=== PATIENT | male | born 1940 | race Caucasian/White ===

== ENCOUNTER 2021-08-05 05:53 | Inpatient (IN) ==
[2021-08-05] MEDS ORDERED: ONDANSETRON 4 MG/2 ML VIAL IV STA (07:44)
[2021-08-05] MEDS ORDERED: HYDROmorphone 2 MG/1 ML VIAL IV STA (07:44)
[2021-08-05 08:21] LABS: Basophils # 0.1 10*3/uL (0.0-0.2); Basophils % 0.4 % (0.0-0.8); Eosinophils # 0.1 10*3/uL (0.0-0.87); Eosinophils % 0.8 % (0.00-10.9); Hemoglobin 13.9 GM/DL (14.0-18.0); Immature Granulocytes % 0.8 %; Lymphocytes # 1.4 10*3/uL (1.4-4.0); Lymphocytes % 11.1 % (21.2-54.2); Mean Corpuscular HGB Conc 32.3 GM/DL (32-36); Mean Corpuscular Volume 82.4 FL (87-102); Mean Platelet Volume 8.4 FL (9.6-12.0); Monocytes % 7.9 % (1.7-12.7); Platelet Count 156 T/CUMM (130-400); Red Blood Count 5.22 MC/CUMM (3.8-5.5); Red Cell Distribution Width 14.6 % (9.3-17.3); White Blood Count 12.7 T/CUMM (4-12)
[2021-08-05 08:45] LABS: Alanine Aminotransferase < 6 U/L (16-61); Albumin 3.3 G/DL (3.4-5.0); Alkaline Phosphatase 270 U/L (45-117); Aspartate Amino Transferase 46 U/L (0-37); Blood Urea Nitrogen 22 MG/DL (7-18); Calcium 9.8 MG/DL (8.5-10.1); Carbon Dioxide 24 MMOL/L (21-32); Estimated Glom Filtration Rate 61 ML/MIN; Glucose 86 MG/DL (74-106); Osmolality,Calculated 276.7 MOS/KG (273-304); Potassium 4.1 MMOL/L (3.5-5.1); Sodium 138 MMOL/L (136-145); Total Protein 7.4 G/DL (6.4-8.2)
[2021-08-05] MEDS ORDERED: GLUCAGON 1 MG VIAL IM PRN (09:23)
[2021-08-05] MEDS ORDERED: DEXTROSE 50% 25 GM/50 ML VIAL IV PRN (09:23)
[2021-08-05] MEDS ORDERED: ONDANSETRON 4 MG/2 ML VIAL IV PRN (09:24)
[2021-08-05] MEDS: SODIUM CHLORIDE 0.9% 1,000 ML IV SCH (12:15)
[2021-08-05] MEDS: ENOXAPARIN 40 MG/0.4 ML SYRINGE SUBCUT SCH (12:20)
[2021-08-05] MEDS: ACETAMINOPHEN 325 MG TABLET PO PRN (18:40)
[2021-08-05] MEDS: METOPROLOL TARTRATE 25 MG TABLET PO SCH (20:47)
[2021-08-05] MEDS: DOCUSATE SODIUM 100 MG CAPSULE PO SCH (20:47)
[2021-08-06] MEDS: SODIUM CHLORIDE 0.9% 1,000 ML IV SCH ×2 (01:10→13:40)
[2021-08-06] MEDS: HYDROmorphone 2 MG/1 ML VIAL IV PRN ×2 (01:10→15:24)
[2021-08-06 05:54] LABS: Basophils # 0.1 10*3/uL (0.0-0.2); Basophils % 0.4 % (0.0-0.8); Eosinophils # 0.9 10*3/uL (0.0-0.87); Eosinophils % 8.1 % (0.00-10.9); Hematocrit 36.9 VOL% (42.0-52.0); Hemoglobin 11.6 GM/DL (14.0-18.0); Immature Granulocytes % 0.5 %; Immature Granulocytes Absolute 0.06 #; Lymphocytes # 1.5 10*3/uL (1.4-4.0); Lymphocytes % 12.5 % (21.2-54.2); Mean Corpuscular HGB Conc 31.4 GM/DL (32-36); Mean Corpuscular Volume 83.7 FL (87-102); Mean Platelet Volume 9.4 FL (9.6-12.0); Monocytes % 8.5 % (1.7-12.7); Platelet Count 122 T/CUMM (130-400); Red Blood Count 4.41 MC/CUMM (3.8-5.5); Red Cell Distribution Width 14.8 % (9.3-17.3); White Blood Count 11.6 T/CUMM (4-12)
[2021-08-06 06:05] LABS: Calcium 8.2 MG/DL (8.5-10.1); Potassium 4.1 MMOL/L (3.5-5.1)
[2021-08-06 07:14] LABS: Bilirubin,Urine Negative (Negative); Blood, Urine Small mg/dL (Negative); Glucose,Urine (UA) Negative (Negative); Hyaline Casts,Urine 6 /LPF (0-3); Ketones,Urine Negative (Negative); Mucus,Urine Few /LPF (Occasional); Nitrite,Urine Negative (Negative); Protein,Urine Negative; RBC,Urine 3 /HPF (0-4); Urine Appearance CLEAR (Clear); Urine Color Yellow (Yellow); Urine Specific Gravity 1.018 (1.001-1.035); Urine Urobilinogen < 2.0 EU/DL (0.2-1.0)
[2021-08-06] MEDS: ACETAMINOPHEN 325 MG TABLET PO PRN (07:43)
[2021-08-06] MEDS: THYROID 60 MG TABLET PO SCH (09:19)
[2021-08-06] MEDS: ROSUVASTATIN 20 MG TABLET PO SCH (09:19)
[2021-08-06] MEDS: ASPIRIN EC 81 MG TABLET PO SCH (09:20)
[2021-08-06] MEDS: DOCUSATE SODIUM 100 MG CAPSULE PO SCH ×2 (09:20→21:05)
[2021-08-06] MEDS: PANTOPRAZOLE 40 MG TABLET PO SCH (09:21)
[2021-08-06] MEDS: CHOLECALCIFEROL 5,000 UNIT TABLET PO SCH (09:21)
[2021-08-06] MEDS: ENOXAPARIN 40 MG/0.4 ML SYRINGE SUBCUT SCH (10:20)
[2021-08-06 13:40] LABS: Bacteria,Urine Occasional /HPF (Few); Bilirubin,Urine Negative (Negative); Blood, Urine Large mg/dL (Negative); Glucose,Urine (UA) Negative (Negative); Ketones,Urine Negative (Negative); Mucus,Urine Occasional /LPF (Occasional); Nitrite,Urine Negative (Negative); Protein,Urine Negative; RBC,Urine 3 /HPF (0-4); Urine Appearance CLEAR (Clear); Urine Color Straw (Yellow); Urine Specific Gravity 1.004 (1.001-1.035); Urine Urobilinogen < 2.0 EU/DL (0.2-1.0)
[2021-08-06] MEDS ORDERED: DEXAMETHASONE INJ 10 MG in SODIUM CHLORIDE 0.9% 50 ML IV ONE (20:30)
[2021-08-06] MEDS: METOPROLOL TARTRATE 25 MG TABLET PO SCH (21:05)
[2021-08-06] MEDS: TEMAZEPAM 15 MG CAPSULE PO PRN (22:29)
[2021-08-07 05:27] LABS: Basophils % 0.1 % (0.0-0.8); Eosinophils % 0.1 % (0.00-10.9); Hematocrit 37.8 VOL% (42.0-52.0); Hemoglobin 12.2 GM/DL (14.0-18.0); Immature Granulocytes % 0.8 %; Immature Granulocytes Absolute 0.07 #; Lymphocytes # 0.6 10*3/uL (1.4-4.0); Mean Corpuscular HGB Conc 32.3 GM/DL (32-36); Mean Corpuscular Volume 83.3 FL (87-102); Monocytes % 1.2 % (1.7-12.7); Neutrophils % 90.8 % (38.7-73.9); Platelet Count 130 T/CUMM (130-400); Red Blood Count 4.54 MC/CUMM (3.8-5.5); Red Cell Distribution Width 14.6 % (9.3-17.3); White Blood Count 8.5 T/CUMM (4-12)
[2021-08-07] MEDS: SODIUM CHLORIDE 0.9% 1,000 ML IV SCH ×2 (05:33→17:16)
[2021-08-07 05:42] LABS: Calcium 8.1 MG/DL (8.5-10.1); Osmolality,Calculated 281.4 MOS/KG (273-304); Potassium 4.2 MMOL/L (3.5-5.1)
[2021-08-07 06:11] LABS: Anisocytosis 1+; Band Neutrophils 9 % (0-10); Burr Cells Few; Lymphocytes 7 % (20-55); Platelet Estimate Adequate; Segmented Neutrophils 83 % (50-85); Stomatocytes Few; Total Cells Counted 100
[2021-08-07] MEDS: THYROID 60 MG TABLET PO SCH (11:08)
[2021-08-07] MEDS: DOCUSATE SODIUM 100 MG CAPSULE PO SCH ×2 (11:10→21:42)
[2021-08-07] MEDS: ASPIRIN EC 81 MG TABLET PO SCH (11:10)
[2021-08-07] MEDS: PANTOPRAZOLE 40 MG TABLET PO SCH (11:10)
[2021-08-07] MEDS: CHOLECALCIFEROL 5,000 UNIT TABLET PO SCH (11:10)
[2021-08-07] MEDS: ROSUVASTATIN 20 MG TABLET PO SCH (11:10)
[2021-08-07] MEDS: ENOXAPARIN 40 MG/0.4 ML SYRINGE SUBCUT SCH (11:10)
[2021-08-07] MEDS: DEXAMETHASONE 4 MG TABLET PO SCH ×2 (11:18→21:42)
[2021-08-07] MEDS: HYDROmorphone 2 MG/1 ML VIAL IV PRN (17:15)
[2021-08-07] MEDS ORDERED: PROMETHAZINE INJ 25 MG in SODIUM CHLORIDE 0.9% 50 ML IV PRN (17:26)
[2021-08-07] MEDS ORDERED: MAGNESIUM HYDROXIDE SUSP 30 ML UDCUP PO PRN (17:26)
[2021-08-07] MEDS ORDERED: MYLANTA/LIDO VISC 2:1 300 ML BOTTLE SWISH/SPIT PRN (17:26)
[2021-08-07] MEDS ORDERED: diphenhydrAMINE CAP 25 MG CAPSULE PO PRN (17:26)
[2021-08-07] MEDS ORDERED: TEMAZEPAM 7.5 MG CAPSULE PO PRN (17:26)
[2021-08-07] MEDS ORDERED: guaiFENesin 200 MG/10 ML UDCUP PO PRN (17:26)
[2021-08-07] MEDS ORDERED: LOPERAMIDE 2 MG CAPSULE PO PRN ×2 (17:26)
[2021-08-07] MEDS ORDERED: MYLANTA/LIDO VISC 2:1 300 ML BOTTLE SWISH/SWAL PRN (17:26)
[2021-08-07] MEDS ORDERED: ALUMINUM/MAGNES/SIMETH MAX STR 30 ML UDCUP PO PRN (17:26)
[2021-08-07] MEDS ORDERED: LACTULOSE 20 GM/30 ML UDCUP PO PRN (17:26)
[2021-08-07] MEDS ORDERED: ALPRAZolam 0.25 MG TABLET PO PRN (17:26)
[2021-08-07] MEDS ORDERED: traMADol 50 MG TABLET PO PRN (17:26)
[2021-08-07] MEDS ORDERED: ONDANSETRON 4 MG/2 ML VIAL IV PRN (17:26)
[2021-08-07] MEDS: METOPROLOL TARTRATE 25 MG TABLET PO SCH (21:42)
[2021-08-08] MEDS: SODIUM CHLORIDE 0.9% 1,000 ML IV SCH (05:15)
[2021-08-08 05:29] LABS: Hematocrit 35.7 VOL% (42.0-52.0); Hemoglobin 11.4 GM/DL (14.0-18.0); Immature Granulocytes % 0.9 %; Immature Granulocytes Absolute 0.11 #; Lymphocytes # 0.9 10*3/uL (1.4-4.0); Lymphocytes % 7.9 % (21.2-54.2); Mean Corpuscular HGB Conc 31.9 GM/DL (32-36); Mean Corpuscular Volume 83.8 FL (87-102); Mean Platelet Volume 10.1 FL (9.6-12.0); Monocytes % 2.6 % (1.7-12.7); Neutrophils % 88.6 % (38.7-73.9); Platelet Count 145 T/CUMM (130-400); Red Blood Count 4.26 MC/CUMM (3.8-5.5); Red Cell Distribution Width 14.8 % (9.3-17.3); White Blood Count 11.9 T/CUMM (4-12)
[2021-08-08 06:07] LABS: Calcium 7.9 MG/DL (8.5-10.1); Osmolality,Calculated 286.1 MOS/KG (273-304); Potassium 3.9 MMOL/L (3.5-5.1)
[2021-08-08] MEDS: DOCUSATE SODIUM 100 MG CAPSULE PO SCH ×2 (07:29→20:32)
[2021-08-08] MEDS: PANTOPRAZOLE 40 MG TABLET PO SCH (08:30)
[2021-08-08] MEDS: DEXAMETHASONE 4 MG TABLET PO SCH ×2 (08:30→20:32)
[2021-08-08] MEDS: ASPIRIN EC 81 MG TABLET PO SCH (12:08)
[2021-08-08] MEDS: ROSUVASTATIN 20 MG TABLET PO SCH (12:08)
[2021-08-08] MEDS: THYROID 60 MG TABLET PO SCH (12:08)
[2021-08-08] MEDS: CHOLECALCIFEROL 5,000 UNIT TABLET PO SCH (12:09)
[2021-08-08] MEDS: ENOXAPARIN 40 MG/0.4 ML SYRINGE SUBCUT SCH (12:09)
[2021-08-08] MEDS: TEMAZEPAM 15 MG CAPSULE PO PRN (20:32)
[2021-08-08] MEDS: METOPROLOL TARTRATE 25 MG TABLET PO SCH (20:32)
[2021-08-09] MEDS: SODIUM CHLORIDE 0.9% 1,000 ML IV SCH ×3 (05:14→19:33)
[2021-08-09] MEDS: DOCUSATE SODIUM 100 MG CAPSULE PO SCH ×2 (09:18→20:39)
[2021-08-09] MEDS: CHOLECALCIFEROL 5,000 UNIT TABLET PO SCH (09:19)
[2021-08-09] MEDS: PANTOPRAZOLE 40 MG TABLET PO SCH (09:19)
[2021-08-09] MEDS: ROSUVASTATIN 20 MG TABLET PO SCH (09:19)
[2021-08-09] MEDS: THYROID 60 MG TABLET PO SCH (09:19)
[2021-08-09] MEDS: ASPIRIN EC 81 MG TABLET PO SCH (09:20)
[2021-08-09] MEDS: DEXAMETHASONE 4 MG TABLET PO SCH ×2 (09:20→20:40)
[2021-08-09] MEDS: ENOXAPARIN 40 MG/0.4 ML SYRINGE SUBCUT SCH (09:20)
[2021-08-09] MEDS: METOPROLOL TARTRATE 25 MG TABLET PO SCH (20:39)
[2021-08-10] MEDS: HYDROmorphone 2 MG/1 ML VIAL IV PRN (02:27)
[2021-08-10 05:37] LABS: Basophils % 0.2 % (0.0-0.8); Hematocrit 36.8 VOL% (42.0-52.0); Hemoglobin 11.6 GM/DL (14.0-18.0); Immature Granulocytes % 1.1 %; Immature Granulocytes Absolute 0.13 #; Lymphocytes # 1.2 10*3/uL (1.4-4.0); Lymphocytes % 10.6 % (21.2-54.2); Mean Corpuscular HGB Conc 31.5 GM/DL (32-36); Mean Corpuscular Volume 83.8 FL (87-102); Mean Platelet Volume 10.1 FL (9.6-12.0); Monocytes % 3.9 % (1.7-12.7); Neutrophils % 84.2 % (38.7-73.9); Platelet Count 188 T/CUMM (130-400); Red Blood Count 4.39 MC/CUMM (3.8-5.5); Red Cell Distribution Width 14.8 % (9.3-17.3); White Blood Count 11.4 T/CUMM (4-12)
[2021-08-10 06:08] LABS: Calcium 8.3 MG/DL (8.5-10.1); Osmolality,Calculated 284.1 MOS/KG (273-304)
[2021-08-10] MEDS: PANTOPRAZOLE 40 MG TABLET PO SCH (09:47)
[2021-08-10] MEDS: DEXAMETHASONE 4 MG TABLET PO SCH (09:47)
[2021-08-10] MEDS: DOCUSATE SODIUM 100 MG CAPSULE PO SCH (09:47)
[2021-08-10] MEDS: ROSUVASTATIN 20 MG TABLET PO SCH (09:47)
[2021-08-10] MEDS: THYROID 60 MG TABLET PO SCH (09:47)
[2021-08-10] MEDS: CHOLECALCIFEROL 5,000 UNIT TABLET PO SCH (09:47)
[2021-08-10] MEDS: ASPIRIN EC 81 MG TABLET PO SCH (09:47)
[2021-08-10] MEDS: ENOXAPARIN 40 MG/0.4 ML SYRINGE SUBCUT SCH (09:48)
[2021-08-10 11:54] VITALS: BP 162/70
== END 2021-08-10 15:45 | disposition home health service (06) | DRG 543 ==
LOC: EDBD → EDUNIT# → N.ED 05:53 → N.EDINP 09:23 → N.4E 09:57
PROVIDERS: ADMIT Internal Medicine; ATTEND Internal Medicine